=== PATIENT | male | born 1960 | race Caucasian/White ===

== ENCOUNTER → 2017-04-07 | Day surgery (SDC) | payer OTHER ==
[~2017-04-07] MED LIST: GABAPENTIN600 MG PO; MELOXICAM7.5 MG PO; PRAVASTATIN SOD40 MG PO; ZESTORETIC 20-1 EAC2 PO
--- NOTE | ~2017-04-07 | OR ---
Unit #: [id number] #: [id number] Patient: JUAN DIEGO MICHAELS [id number] [address] [address] [id number] O MR#: [id number] NAME: JUAN DIEGO MICHAELS. ROOM: Date of Procedure: 04/07/2017 Admission Date: 04/07/2017 Surgeon: João Mcdonald M.D. : 1960 Attending Physician: João Mcdonald M.D. Primary Care Physician: Morro Patricia M.D. OPERATIVE REPORT INDICATIONS FOR PROCEDURE Average risk for colorectal cancer. MEDICATIONS Monitored anesthesia. POSTOPERATIVE FINDINGS Normal exam with good prep. Few diverticula were seen. PLAN Repeat colonoscopy in 10 years. DESCRIPTION OF PROCEDURE The patient was explained of the procedure, risks, and benefits along with risks and benefits of anesthesia. He was brought to the endoscopy room. Propofol anesthesia was given. Rectal exam was done, which was normal. Colonoscope was lubricated, passed up the rectum, advanced under direct vision all the way to the cecum. Cecum was identified by ileocecal valve and appendiceal orifice. I then started to pull the scope out carefully looking. No polyps, masses, or colitis were seen. Few diverticula were seen. I retroflexed in the rectum, small hemorrhoids were noticed also. Gently, the scope was pulled out. He tolerated it well. Dictated by... Fernando Arriaza/edgardo TD: 04/07/2017 17:45 JOB #: [id number] Unit #: [id number] #: [id number] Patient: JUAN DIEGO MICHAELS OPERATIVE REPORT Page 1 of 1 X João Mcdonald MD PROCEDURE OPERATIVE NOTE
== END | disposition home or self-care (01) ==
LOC: COPS 03-31 09:00
DX: Z12.11 Encounter for screening for malignant neoplasm of colon (principal); K57.30 Diverticulosis of large intestine without perforation or abscess without bleeding; K64.9 Unspecified hemorrhoids; I10 Essential (primary) hypertension; E78.5 Hyperlipidemia, unspecified; E66.9 Obesity, unspecified; Z79.899 Other long term (current) drug therapy
CPT/HCPCS: J2250